=== PATIENT | female | born 1965 | race African-American/Black ===

== ENCOUNTER 2017-02-19 07:46 | Emergency (ER) | payer SELFPAY ==
[2017-02-19 07:51] VITALS: BP 143/74
--- NOTE | 2017-02-19 08:03 | ER Document Report ---
ED Neck/Back Problem - General Chief Complaint: Back Pain Stated Complaint: BACK PAIN Time Seen by Provider: 02/19/17 08:00 Notes: The patient is a 51-year-old female, past medical history chronic back pain, sciatica, presents with 1 month of left lower back pain and pain radiating down her left leg. She denies saddle anesthesia, change in bowel or bladder, fevers , history of IVDA, injury, chest pain, shortness of breath or fevers. TRAVEL OUTSIDE OF THE [place] IN LAST 30 DAYS: No - Related Data Allergies/Adverse Reactions: iodine [Iodine] Allergy (Mild, Verified 02/19/17 07:50) rash, itchy oxycodone HCl [From Percocet] Allergy (Verified 02/19/17 07:50) Past Medical History - General Information source: Patient - Social History Smoking Status: Current Every Day Smoker Family History: Arthritis, CAD, DM, Hyperlipidemia, Hypertension, Malignancy, Thyroid Disfunction. denies: CVA - Past Medical History Cardiac Medical History: Reports: Hx Hypertension Renal/ Medical History: Denies: Hx Peritoneal Dialysis Past Surgical History: Reports: Hx Section - X5, Hx Tonsillectomy - Immunizations Hx Diphtheria, Pertussis, Tetanus Vaccination: Yes Review of Systems - Review of Systems Notes: REVIEW OF SYSTEMS: CONSTITUTIONAL: -fevers, -chills EENT: -eye pain, -difficulty swallowing, -nasal congestion CARDIOVASCULAR:-chest pain, -syncope. RESPIRATORY: -cough, -SOB GASTROINTESTINAL: -abdominal pain, - nausea, -vomiting, -diarrhea GENITOURINARY: -dysuria, -hematuria MUSCULOSKELETAL: +back pain, -neck pain SKIN: -rash or skin lesions. HEMATOLOGIC: -easy bruising or bleeding. LYMPHATIC: -swollen, enlarged glands. NEUROLOGICAL: -altered mental status or loss of consciousness, -headache, - neurologic symptoms PSYCHIATRIC: -anxiety, -depression. ALL OTHER SYSTEMS REVIEWED AND NEGATIVE. Physical Exam - Vital signs Vitals: Temp Pulse Resp BP Pulse Ox 98.6 F 83 18 143/74 H 98 02/19/17 07:50 02/19/17 07:50 02/19/17 07:50 02/19/17 07:50 02/19/17 07:50 - Notes Notes: PHYSICAL EXAMINATION: GENERAL: Well-appearing, well-nourished and in no acute distress. HEAD: Atraumatic, normocephalic. EYES: Pupils equal round and reactive to light, extraocular movements intact, sclera anicteric, conjunctiva are normal. ENT: nares patent, oropharynx clear without exudates. Moist mucous membranes. NECK: Normal range of motion, supple without lymphadenopathy LUNGS: Breath sounds clear to auscultation bilaterally and equal. No wheezes rales or rhonchi. HEART: Regular rate and rhythm without murmurs ABDOMEN: Soft, nontender, normoactive bowel sounds. No guarding, no rebound. No masses appreciated. EXTREMITIES: Normal range of motion, no pitting or edema. No cyanosis. Strong distal pulse.s BACK: Tenderness over left lower back, no midline tenderness NEUROLOGICAL: Cranial nerves grossly intact. Normal speech, normal gait. Normal motor exams. Tingling down back of left leg. PSYCH: Normal mood, normal affect. SKIN: Warm, Dry, normal turgor, no rashes or lesions noted. Course - Re-evaluation Re-evalutation: No red flag signs for low back pain at this time. She has symptoms of her sciatica. Instructed her to continue anti-inflammatories, Lidoderm patch and follow-up with her primary care physician. - Vital Signs Vital signs: Temp Pulse Resp BP Pulse Ox 98.6 F 83 18 143/74 H 98 02/19/17 07:50 02/19/17 07:50 02/19/17 07:50 02/19/17 07:50 02/19/17 07:50 Discharge - Discharge Clinical Impression: Low back pain Qualifiers: Chronicity: chronic Back pain laterality: left Sciatica presence: with sciatica Sciatica laterality: sciatica of left side Qualified Code(s): M54.42 - Lumbago with sciatica, left side; G89.29 - Other chronic pain Sciatica Qualifiers: Laterality: left Qualified Code(s): M54.32 - Sciatica, left side Condition: Stable Disposition: HOME, SELF-CARE Additional Instructions: LOW BACK PAIN: Three out of every four people will have an episode of disabling back pain during their lifetime. Most commonly the pain is due to straining of the muscles and ligaments in the low back. Usual treatment includes: (1) Rest on a firm surface. Avoid lying on your stomach. (2) Ice pack the painful area. After a few days, gentle heat may be used intermittently to relax the area, or ice packs can be continued. (3) Medication may be needed -- muscle relaxers and antiinflammatory medicines are commonly used. (4) As the back improves, exercises are prescribed to strengthen the back and abdominal muscles. Your doctor will advise you on the proper care for your back at each stage in your recovery. You may be better in a few days -- or healing may take several weeks. If new symptoms of a "herniated disc" (radiation of pain, numbness, or tingling down the back of the leg or weakness in the leg) occur, you should be re-examined. Further testing may be necessary. MUSCLE RELAXERS: Muscle relaxing medications are usually prescribed for acute muscle spasm or injury to the neck and back. They are often combined with antiinflammatory pain medication for increased relief. You may stop the muscle relaxer when the pain and stiffness have improved. Start the medication again if spasms recur. Muscle relaxers may cause drowsiness, especially with the first dose. Do not operate machinery or drive while under the effects of the medication. Most muscle relaxers last up to 24 hours. Do not combine the medication with alcohol. ICE PACKS: Apply ice packs frequently against the painful area. Many different schedules are recommended, such as "20 minutes on, 20 minutes off" or "one hour ice, two hours rest." If you need to work, you may need to go longer between ice treatments. You should plan to have the area ice packed AT LEAST one fourth of the time. The ice should be applied over the wrap, tape, or splint, or over a layer of cloth -- not directly against the skin. Some ice bags have a built-in cloth and can be put directly on the skin. WARM PACKS: After approximately two days, apply gentle heat (such as a heating pad or hot water bottle) for about 20 to 30 minutes about every two hours -- at least four times daily. Warmth and elevation will help you make a more rapid recovery , and will ease the pain considerably. Do not use HOT heat, and never apply heat for longer than 30 minutes. The continuous heat can invisibly damage skin and muscles -- even when no burn is seen on the surface. Damaged muscles can make you MORE sore. FOLLOW-UP CARE: If you have been referred to a physician for follow-up care, call the physician s office for an appointment as you were instructed or within the next two days. If you experience worsening or a significant change in your symptoms, notify the physician immediately or return to the Emergency Department at any time for re-evaluation. Prescriptions: Lidocaine [Lidoderm 5% (700 mg) Transdermal Patch] 1 patch TP DAILY #10 adh..patch Forms: Elevated Blood Pressure
[2017-02-19] MEDS ORDERED: DEXAMETHASONE 4 MG TABLET PO ONE (08:13)
== END 2017-02-19 08:21 | disposition home or self-care (01) ==
LOC: ER 07:46
DX: M54.42 Lumbago with sciatica, left side (principal); M54.9 Dorsalgia, unspecified; G89.29 Other chronic pain; F17.200 Nicotine dependence, unspecified, uncomplicated
CPT/HCPCS: 99283

== ENCOUNTER 2018-10-15 12:09 | Emergency (ER) | payer SELFPAY ==
[2018-10-15] MEDS ORDERED: ASPIRIN 81 MG TABLET, CHEWABLE PO ONE (12:34)
--- NOTE | 2018-10-15 12:36 | ER Document Report ---
ED Medical Screen (RME) - General Chief Complaint: Chest Pain Stated Complaint: COUGH Time Seen by Provider: 10/15/18 12:28 Notes: 52-year-old female with no reported past medical history presents with 3 days of chest pain and dyspnea. I have greeted and performed a rapid initial assessment of this patient. A comprehensive ED assessment and evaluation of the patient, analysis of test results and completion of medical decision making process we will be contacted by additional ED providers. PHYSICAL EXAMINATION: Vital signs reviewed GENERAL: Well-appearing, well-nourished and in no acute distress. LUNGS: No respiratory distress Musculoskeletal: Normal range of motion NEUROLOGICAL: Normal speech, normal gait. PSYCH: Normal mood, normal affect. SKIN: Warm, Dry, normal turgor, no rashes or lesions noted. TRAVEL OUTSIDE OF THE [place] IN LAST 30 DAYS: No - HPI Onset: Other Onset/Duration: Constant Quality of pain: Achy Severity: Mild Associated Symptoms: Chest pain, Cough (nonproductive), Shortness of breath Exacerbated by: Coughing Relieved by: Denies Similar symptoms previously: No Recently seen / treated by doctor: No - Related Data Smoking: Non-smoker Frequency of alcohol use: None Drug Abuse: None Allergies/Adverse Reactions: iodine [Iodine] Allergy (Mild, Verified 10/15/18 12:21) rash, itchy oxycodone HCl [From Percocet] Allergy (Verified 10/15/18 12:21) Past Medical History - Social History Frequency of alcohol use: None Drug Abuse: None - Past Medical History Cardiac Medical History: Reports: Hx Hypertension Renal/ Medical History: Denies: Hx Peritoneal Dialysis Past Surgical History: Reports: Hx Section - X5, Hx Tonsillectomy - Immunizations Hx Diphtheria, Pertussis, Tetanus Vaccination: Yes Physical Exam - Vital signs Vitals: Temp Pulse Resp BP Pulse Ox 98.4 F 88 14 101/69 96 10/15/18 12:20 10/15/18 12:20 10/15/18 12:20 10/15/18 12:20 10/15/18 12:20 Course - Vital Signs Vital signs: Temp Pulse Resp BP Pulse Ox 98.4 F 88 14 101/69 96 10/15/18 12:20 10/15/18 12:20 10/15/18 12:20 10/15/18 12:20 10/15/18 12:20
--- NOTE | 2018-10-15 12:58 | RADIOLOGY REPORT (SQ) ---
EXAM DESCRIPTION: CHEST 2 VIEWS COMPLETED DATE/TIME: 10/15/2018 12:49 pm REASON FOR STUDY: chest pain COMPARISON: 08/14/2014. EXAM PARAMETERS: NUMBER OF VIEWS: two views TECHNIQUE: Digital Frontal and Lateral radiographic views of the chest acquired. RADIATION DOSE: NA LIMITATIONS: none FINDINGS: LUNGS AND PLEURA: No opacities, masses or pneumothorax. No pleural effusion. MEDIASTINUM AND HILAR STRUCTURES: No masses or contour abnormalities. HEART AND VASCULAR STRUCTURES: Heart normal size. No evidence for failure. BONES: No acute findings. HARDWARE: None in the chest. OTHER: No other significant finding. IMPRESSION: NO ACUTE RADIOGRAPHIC FINDING IN THE CHEST. TECHNICAL DOCUMENTATION: JOB ID: [id number] [employer]- All Rights Reserved Reading location - IP/workstation name: [email or web address]
[2018-10-15 13:33] LABS: ABSOLUTE BASOPHILS # (AUTO) 0.1 10^3/uL (0.0-0.2); ABSOLUTE EOSINOPHILS # (AUTO) 0.2 10^3/uL (0.0-0.6); ABSOLUTE MONOCYTES (AUTO) 0.6 10^3/uL (0.1-1.4); ABSOLUTE NEUT (AUTO) 4.6 10^3/uL (1.7-8.2); BASOPHILS % (AUTO) 0.8 % (0-2); EOSINOPHILS % (AUTO) 2.1 % (0-6); HEMATOCRIT 32.4 % (36.0-47.0); HEMOGLOBIN 10.1 g/dL (12.0-15.5); LYMPHOCYTES % (AUTO) 35.3 % (13-45); MEAN CORPUSCULAR HEMOGLOBIN 20.7 pg (27.0-33.4); MEAN CORPUSCULAR HGB CONC 31.2 g/dL (32.0-36.0); MEAN CORPUSCULAR VOLUME 66 fl (80-97); MONOCYTES % (AUTO) 7.2 % (3-13); PLATELET COUNT 509 10^3/uL (150-450); RED BLOOD COUNT 4.88 10^6/uL (3.72-5.28); RED CELL DISTRIBUTION WIDTH 18.2 % (11.5-14.0); SEGMENTED NEUTROPHILS % (AUTO) 54.6 % (42-78); TOTAL CELLS COUNTED % (AUTO) 100 %; WHITE BLOOD COUNT 8.4 10^3/uL (4.0-10.5)
[2018-10-15 13:51] LABS: ALANINE AMINOTRANSFERASE 16 U/L (9-52); ALBUMIN 4.5 g/dL (3.5-5.0); ALKALINE PHOSPHATASE 75 U/L (38-126); ANION GAP 12 (5-19); ASPARTATE AMINO TRANSFERASE 18 U/L (14-36); BILIRUBIN,DIRECT 0.3 mg/dL (0.0-0.4); BILIRUBIN,TOTAL 0.4 mg/dL (0.2-1.3); BLOOD UREA NITROGEN 13 mg/dL (7-20); CALCIUM 9.9 mg/dL (8.4-10.2); CARBON DIOXIDE 26 mmol/L (22-30); CHLORIDE 99 mmol/L (98-107); CREATINE KINASE 82 U/L (30-135); GLUCOSE 85 mg/dL (75-110); POTASSIUM 4.1 mmol/L (3.6-5.0); TOTAL PROTEIN 8.2 g/dL (6.3-8.2)
[2018-10-15 14:03] LABS: CREATINE KINASE MB 0.38 ng/mL (<4.55)
[2018-10-15 14:11] LABS: TROPONIN I < 0.012 ng/mL
[2018-10-15] MEDS ORDERED: LIDOCAINE 1% INJ-PF (10 MG/ML) 30 ML SDV NEB ONE (14:40)
[2018-10-15] MEDS ORDERED: IPRATROPIUM/ALBUTEROL 0.5-2.5 MG/3 ML AMPUL NEB ONE (14:40)
[2018-10-15] MEDS ORDERED: ALBUTEROL SULFATE HFA (90 MCG/PUFF) 8 GM MDI (1 MDI/ER DISP) IH ONE (16:07)
--- NOTE | 2018-10-15 16:08 | ER Document Report ---
ED General - General Chief Complaint: Chest Pain Stated Complaint: COUGH Time Seen by Provider: 10/15/18 12:28 TRAVEL OUTSIDE OF THE [place] IN LAST 30 DAYS: No - HPI Patient complains to provider of: Cough chest pain Notes: Patient coming in for evaluation of cough and chest pain. Patient states cough chest pain ongoing for the last few days. Patient states that he has seasonal allergies states he did not take anything for seasonal allergies. Patient states currently chest pain resolved still feels shortness of breath. Patient denies any recent travel denies any sputum production denies any fever chills nausea vomiting diarrhea denies any abdominal pain. Denies any trauma. Patient is resting comfortably upon my evaluation. - Related Data Allergies/Adverse Reactions: iodine [Iodine] Allergy (Mild, Verified 10/15/18 12:21) rash, itchy oxycodone HCl [From Percocet] Allergy (Verified 10/15/18 12:21) Past Medical History - Social History Smoking Status: Never Smoker Frequency of alcohol use: None Drug Abuse: None Family History: Arthritis, CAD, DM, Hyperlipidemia, Hypertension, Malignancy, Thyroid Disfunction. denies: CVA Patient has suicidal ideation: No Patient has homicidal ideation: No - Past Medical History Cardiac Medical History: Reports: Hx Hypertension Renal/ Medical History: Denies: Hx Peritoneal Dialysis Past Surgical History: Reports: Hx Section - X5, Hx Tonsillectomy - Immunizations Hx Diphtheria, Pertussis, Tetanus Vaccination: Yes Review of Systems - Review of Systems Constitutional: No symptoms reported EENT: No symptoms reported Cardiovascular: Chest pain Respiratory: Short of breath Gastrointestinal: No symptoms reported Genitourinary: No symptoms reported Female Genitourinary: No symptoms reported Musculoskeletal: No symptoms reported Skin: No symptoms reported Hematologic/Lymphatic: No symptoms reported Neurological/Psychological: No symptoms reported -: Yes All other systems reviewed and negative Physical Exam - Vital signs Vitals: Temp Pulse Resp BP Pulse Ox 98.4 F 88 14 101/69 96 10/15/18 12:20 10/15/18 12:20 10/15/18 12:20 10/15/18 12:20 10/15/18 12:20 Interpretation: Normal - General General appearance: Appears well, Alert - HEENT Head: Normocephalic, Atraumatic Eyes: Normal Pupils: PERRL - Respiratory Respiratory status: No respiratory distress Chest status: Nontender Breath sounds: Wheezing - Right upper lobe Chest palpation: Normal - Cardiovascular Rhythm: Regular Heart sounds: Normal auscultation Murmur: No - Abdominal Inspection: Normal Distension: No distension Bowel sounds: Normal Tenderness: Nontender Organomegaly: No organomegaly - Back Back: Normal, Nontender - Extremities General upper extremity: Normal inspection, Nontender, Normal color, Normal ROM, Normal temperature General lower extremity: Normal inspection, Nontender, Normal color, Normal ROM, Normal temperature, Normal weight bearing. No: Harvinder's sign - Neurological Neuro grossly intact: Yes Cognition: Normal Orientation: AAOx4 Valdez Coma Scale Eye Opening: Spontaneous Valdez Coma Scale Verbal: Oriented Paco Coma Scale Motor: Obeys Commands Paco Coma Scale Total: 15 Speech: Normal Motor strength normal: LUE, RUE, LLE, RLE Sensory: Normal - Psychological Associated symptoms: Normal affect, Normal mood - Skin Skin Temperature: Warm Skin Moisture: Dry Skin Color: Normal Course - Re-evaluation Re-evalutation: 10/15/18 18:16 Patient coming in for evaluation of chest pain right-sided along with shortness of breath. Patient had a consolidated wheezing in the right upper lobe of the lung however no signs of pneumonia on the x-ray. No white count. More likely possibly reactive airway disease versus bronchitis. Patient will be treated with bronchodilators and steroids. Patient is also suggested to take allergy medication such as Zyrtec. Patient will be discharged home. - Vital Signs Vital signs: Temp Pulse Resp BP Pulse Ox 98.4 F 88 17 140/87 H 99 10/15/18 16:01 10/15/18 12:20 10/15/18 16:01 10/15/18 16:01 10/15/18 16:01 - Laboratory Result Diagrams: 10/15/18 13:06 10/15/18 13:06 Laboratory results interpreted by me: 10/15/18 13:06 Hgb 10.1 L Hct 32.4 L MCV 66 L MCH 20.7 L MCHC 31.2 L RDW 18.2 H Plt Count 509 H Discharge - Discharge Clinical Impression: Bronchitis, Chest wall pain Condition: Good Disposition: HOME, SELF-CARE Instructions: Anti-Inflammatory Medication ([facility]), Bronchitis With Bronchospasm (Wheezing) ([facility]), Chest Wall Pain ([facility]), Chest Pain of Unclear Cause ([facility]) Additional Instructions: Please take the prednisone as prescribed please take the inhaler that we gave you here in the ER 2 puffs every 4 hours as needed for shortness of breath please follow-up with your primary care physician and return to the ER if symptoms worsen. Prescriptions: Prednisone [Deltasone] 60 mg PO DAILY #24 tablet Forms: Return to Work
[2018-10-15 16:35] VITALS: BP 140/87
--- NOTE | 2018-10-15 18:00 | EKG REPORT ---
SEVERITY:- BORDERLINE ECG - SINUS RHYTHM BORDERLINE T ABNORMALITIES, INFERIOR LEADS : Confirmed by: Jeremy Salgado MD 15-Oct-2018 17:58:29
== END 2018-10-15 16:43 | disposition home or self-care (01) ==
LOC: ER 12:09
DX: J40 Bronchitis, not specified as acute or chronic (principal); J30.2 Other seasonal allergic rhinitis; R07.89 Other chest pain; R05 Cough; R06.02 Shortness of breath; R06.2 Wheezing; I10 Essential (primary) hypertension; Z88.5 Allergy status to narcotic agent
CPT/HCPCS: 93005; 94640; 99284; 36415; 82553; 82550; 85025; 80053; 84484; 71046; 93010; J3490 ×2; J7620

== ENCOUNTER 2018-10-18 08:06 | Emergency (ER) | payer SELFPAY ==
--- NOTE | 2018-10-18 09:54 | ER Document Report ---
ED Medical Screen (RME) - General Chief Complaint: Cough Stated Complaint: FLU SYMPTOMS Time Seen by Provider: 10/18/18 09:53 TRAVEL OUTSIDE OF THE [place] IN LAST 30 DAYS: No - HPI Notes: 10/18/18 09:53 Patient present patient present with cough associated with shortness of breath which has been going on for a couple of days. Cough is nonproductive. Physical exam other than obesity is unremarkable. 10/18/18 09:53 - Related Data Allergies/Adverse Reactions: iodine [Iodine] Allergy (Mild, Verified 10/18/18 08:07) rash, itchy oxycodone HCl [From Percocet] Allergy (Verified 10/18/18 08:07) Past Medical History - Past Medical History Cardiac Medical History: Reports: Hx Hypertension Renal/ Medical History: Denies: Hx Peritoneal Dialysis Past Surgical History: Reports: Hx Section - X5, Hx Tonsillectomy - Immunizations Hx Diphtheria, Pertussis, Tetanus Vaccination: Yes Physical Exam - Vital signs Vitals: Temp Pulse Resp BP Pulse Ox 98.6 F 86 18 133/94 H 97 10/18/18 08:19 10/18/18 08:19 10/18/18 08:19 10/18/18 08:19 10/18/18 08:19 Course - Vital Signs Vital signs: Temp Pulse Resp BP Pulse Ox 98.6 F 86 18 133/94 H 97 10/18/18 08:19 10/18/18 08:19 10/18/18 08:19 10/18/18 08:19 10/18/18 08:19
--- NOTE | 2018-10-18 10:12 | RADIOLOGY REPORT (SQ) ---
EXAM DESCRIPTION: CHEST 2 VIEWS COMPLETED DATE/TIME: 10/18/2018 10:04 am REASON FOR STUDY: Cough COMPARISON: None. EXAM PARAMETERS: NUMBER OF VIEWS: two views TECHNIQUE: Digital Frontal and Lateral radiographic views of the chest acquired. RADIATION DOSE: NA LIMITATIONS: none FINDINGS: LUNGS AND PLEURA: No opacities, masses or pneumothorax. No pleural effusion. MEDIASTINUM AND HILAR STRUCTURES: No masses or contour abnormalities. HEART AND VASCULAR STRUCTURES: Heart normal size. No evidence for failure. BONES: No acute findings. HARDWARE: None in the chest. OTHER: No other significant finding. IMPRESSION: NO ACUTE RADIOGRAPHIC FINDING IN THE CHEST. TECHNICAL DOCUMENTATION: JOB ID: [id number] [employer]- All Rights Reserved Reading location - IP/workstation name: [email or web address]
[2018-10-18 10:52] LABS: ABSOLUTE EOSINOPHILS # (AUTO) 0.1 10^3/uL (0.0-0.6); ABSOLUTE LYMPHOCYTES (AUTO) 4.6 10^3/uL (0.5-4.7); ABSOLUTE MONOCYTES (AUTO) 0.8 10^3/uL (0.1-1.4); ABSOLUTE NEUT (AUTO) 6.3 10^3/uL (1.7-8.2); BASOPHILS % (AUTO) 0.3 % (0-2); EOSINOPHILS % (AUTO) 0.9 % (0-6); HEMATOCRIT 29.6 % (36.0-47.0); HEMOGLOBIN 9.1 g/dL (12.0-15.5); MEAN CORPUSCULAR HEMOGLOBIN 20.5 pg (27.0-33.4); MEAN CORPUSCULAR HGB CONC 30.8 g/dL (32.0-36.0); MEAN CORPUSCULAR VOLUME 67 fl (80-97); MONOCYTES % (AUTO) 6.5 % (3-13); PLATELET COUNT 459 10^3/uL (150-450); RED BLOOD COUNT 4.43 10^6/uL (3.72-5.28); RED CELL DISTRIBUTION WIDTH 18.5 % (11.5-14.0); SEGMENTED NEUTROPHILS % (AUTO) 53.3 % (42-78); TOTAL CELLS COUNTED % (AUTO) 100 %; WHITE BLOOD COUNT 11.7 10^3/uL (4.0-10.5)
[2018-10-18 11:07] LABS: ALANINE AMINOTRANSFERASE 8 U/L (9-52); ALBUMIN 4.3 g/dL (3.5-5.0); ALKALINE PHOSPHATASE 63 U/L (38-126); ANION GAP 9 (5-19); ASPARTATE AMINO TRANSFERASE 27 U/L (14-36); BILIRUBIN,DIRECT 0.3 mg/dL (0.0-0.4); BILIRUBIN,TOTAL 0.4 mg/dL (0.2-1.3); BLOOD UREA NITROGEN 17 mg/dL (7-20); CARBON DIOXIDE 25 mmol/L (22-30); CHLORIDE 105 mmol/L (98-107); GLUCOSE 93 mg/dL (75-110); SODIUM 139.4 mmol/L (137-145)
[2018-10-18 11:09] LABS: A TYPE INFLUENZA AG NEGATIVE (NEGATIVE); B INFLUENZA AG NEGATIVE (NEGATIVE)
[2018-10-18 12:30] VITALS: BP 128/74
--- NOTE | 2018-10-18 20:36 | ER Document Report ---
Entered by EMIL ARRIOLA SCRIBE 10/18/18 1104 Acting as scribe for:AYDIN GONZALEZ DO ED General - General Chief Complaint: Cough Stated Complaint: FLU SYMPTOMS Time Seen by Provider: 10/18/18 09:53 Mode of Arrival: Ambulatory Information source: Patient Notes: Patient is a 52-year-old female presenting to the emergency department complaining of a cough onset approximately 1 week ago. Patient states she presented to the emergency department on 10/15/2018 and was discharged home with an albuterol inhaler and steroids. She states she feels the albuterol inhaler helps somewhat although she believes her cough is worsening. She describes her cough as productive with clear sputum. She also complains of dizziness and nausea. She denies any vomiting, rhinorrhea, dysuria, or tarry stools. Of significance, patient reports very heavy periods. She denies following up with a pediatric dentist. TRAVEL OUTSIDE OF THE [place] IN LAST 30 DAYS: No - Related Data Allergies/Adverse Reactions: iodine [Iodine] Allergy (Mild, Verified 10/18/18 10:38) rash, itchy oxycodone HCl [From Percocet] Allergy (Verified 10/18/18 10:38) Past Medical History - Social History Smoking Status: Never Smoker Chew tobacco use (# tins/day): No Frequency of alcohol use: None Drug Abuse: None Family History: Arthritis, CAD, DM, Hyperlipidemia, Hypertension, Malignancy, Thyroid Disfunction Patient has suicidal ideation: No Patient has homicidal ideation: No - Past Medical History Cardiac Medical History: Reports: Hx Hypertension Past Surgical History: Reports: Hx Section - X5, Hx Tonsillectomy - Immunizations Hx Diphtheria, Pertussis, Tetanus Vaccination: Yes Review of Systems - Review of Systems Constitutional: No symptoms reported EENT: No symptoms reported Cardiovascular: See HPI, Dizziness Respiratory: See HPI, Cough Gastrointestinal: No symptoms reported Genitourinary: No symptoms reported Female Genitourinary: No symptoms reported Musculoskeletal: No symptoms reported Skin: No symptoms reported Hematologic/Lymphatic: No symptoms reported Neurological/Psychological: No symptoms reported -: Yes All other systems reviewed and negative Physical Exam - Vital signs Vitals: Temp Pulse Resp BP Pulse Ox 98.6 F 86 18 133/94 H 97 10/18/18 08:19 10/18/18 08:19 10/18/18 08:19 10/18/18 08:19 10/18/18 08:19 - Notes Notes: GENERAL: Alert, interacts well. No acute distress. HEAD: Normocephalic, atraumatic. EYES: Pupils equal, round, and reactive to light. Extraocular movements intact. ENT: Oral mucosa moist, tongue midline. Nares patent, mild edema, clear rhinorrhea, TM's intacts. NECK: Full range of motion. Supple. Trachea midline. LUNGS: Clear to auscultation bilaterally, no wheezes, rales, or rhonchi. No respiratory distress. HEART: Regular rate and rhythm. No murmurs, gallops, or rubs. ABDOMEN: Soft, non-tender, no guarding, rigidity, or rebound.. Non-distended. Bowel sounds present in all 4 quadrants. EXTREMITIES: Moves all 4 extremities spontaneously. NEUROLOGICAL: Alert and oriented x3. Normal speech. PSYCH: Normal affect, normal mood. SKIN: Warm, dry, normal turgor. No rashes or lesions noted. Course - Re-evaluation Re-evalutation: 10/18/18 12:15 CBC shows leukocytosis at 11.7, consistent with having started steroids, hemoglobin shows worsening anemia with hemoglobin 9.1, platelets elevated at 459. Discussed with patient the decreasing hemoglobin. There is no need for transfusion at this point. Patient states that she has very heavy periods which are unchanged from the past. Denies blood in her stool or dark tarry stools patient is advised to follow-up with RESIDENT CARE SUPERVISOR to discuss etiology of anemia and possible iron supplementation versus hormonal treatment versus ablation. Patient is agreeable to this plan. Patient also knows that she should return should she develop weakness, dizziness, dark tarry stools or rectal bleeding. Chest x-ray is unremarkable, CMP unremarkable, flu swabs negative. No indication for antibiotics at this time. Patient will be prescribed Tessalon Perles, iron supplements, nasal steroid and discharged home. - Vital Signs Vital signs: Temp Pulse Resp BP Pulse Ox 97.9 F 80 20 128/74 H 99 10/18/18 12:22 10/18/18 12:22 10/18/18 12:22 10/18/18 12:22 10/18/18 12:22 - Laboratory Result Diagrams: 10/18/18 10:25 10/18/18 10:25 Laboratory results interpreted by me: 10/18/18 10/18/18 10:25 10:25 WBC 11.7 H Hgb 9.1 L Hct 29.6 L MCV 67 L MCH 20.5 L MCHC 30.8 L RDW 18.5 H Plt Count 459 H ALT 8 L Discharge - Discharge Clinical Impression: Bronchitis Anemia Qualifiers: Anemia type: unspecified type Qualified Code(s): D64.9 - Anemia, unspecified Condition: Stable Disposition: HOME, SELF-CARE Additional Instructions: We have prescribed Tessalon Perles, these are prescription strength cough drops. Please take 1 Perle every 8 hours as needed to decrease your cough. You may continue to use the inhaler you are prescribed previously 2 puffs every 4 hours as needed for shortness of breath or cough. The nasal steroid that we have prescribed should be used 1 squirt per nostril twice a day. If the prescription version is too expensive you may use an [id number] version or a generic. Please see the pharmacist for advice on which one will be cheapest. You may also use [id number] cough drops. I have written a new prescription for iron, this may help with your anemia. Please take it with vitamin C either pills or orange juice or other similar vi tamin C-containing food. Please follow-up with your RESIDENT CARE SUPERVISOR regarding her heavy vaginal bleeding and the possibility that it may be causing your anemia. Please return to the emergency department should you develop dark black tarry stools or bloody stools. Please also return for fevers, worsening shortness of breath or any new or concerning symptoms. Prescriptions: Benzonatate [Tessalon Perles 100 mg Capsule] 100 mg PO Q8HP PRN #40 capsule PRN Reason: Iron,Carbonyl/Ascorbic Acid [Iron 100-Vitamin C Tablet] 1 each PO BID #30 tablet Mometasone Furoate [Nasonex] 1 spray NS Q12 #1 spray.pump I personally performed the services described in the documentation, reviewed and edited the documentation which was dictated to the scribe in my presence, and it accurately records my words and actions.
== END 2018-10-18 12:32 | disposition home or self-care (01) ==
LOC: ER 08:06
DX: J40 Bronchitis, not specified as acute or chronic (principal); D64.9 Anemia, unspecified; R42 Dizziness and giddiness; I10 Essential (primary) hypertension; Z88.6 Allergy status to analgesic agent
CPT/HCPCS: 36415; 71046; 80053; 85025; 87804; 99283